=== PATIENT | female | born 1980 | race Caucasian/White ===

== ENCOUNTER 2017-07-18 21:34 | Emergency (ER) | payer MEDICAID ==
[~2017-07-18] VITALS: Ht 157.5 cm; Wt 99.8 kg
[2017-07-18] MEDS ORDERED: IBUPROFEN400 MG PO (21:52)
[2017-07-18] MEDS ORDERED: DELSYM30 MG/5 ML PO (21:53)
[2017-07-18 22:20] LABS: HEMOGLOBIN 11.8 g/dL (12.2-16.2); LYMPH # 2.6 K/mm3 (0.7-4.5); LYMPH % 27.1 % (10-50.0)
[2017-07-18 22:23] LABS: URINE BILIRUBIN - DIPSTICK NEGATIVE (NEG); URINE BLOOD TRACE-INTACT (NEG)
--- NOTE | 2017-07-18 23:04 | Emergency Room Report ---
History of Present Illness Time Seen by [id number] Presenting Problem in Triage Pt arrived:Walked Presenting Problem:"I HAVE BEEN FIGHTING SOMETHING OFF X 2 WEEKS. 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 Y Clinical Suspician of Infection? N Mental Status: 1 - Regular (Normal Baseline) Sepsis Risk:Severe Sepsis Risk Have you (or family members/close friends) recently traveled outside the [place]? N If Yes, where/when: Have you had exposure to infectious disease within the past month? N TB? Other? Specify: Source patient, RN notes reviewed, family, RN/MD Exam Limitations no limitations Comment The patient is a 37-year-old lady previously diagnosed with Graves' disease, and seen not till long-ago by endocrinology at [facility]. Patient's insurance ran out, and patient couldn't afford to go back to her doctor, and she is currently off of her Methimazole (30mg/day) and Propranolol ER (60 mg per day ). She is here today with nausea, vomiting, diarrhea for the past 2 weeks, also associated with shortness of breath, hoarseness, and a nonproductive cough for the past 23 days. Patient is also complaining with a subjective fever, as well. ALLERGIES Coded Allergies: No Known Allergies (07/18/17) Home Medications Reported Medications IBUPROFEN MICRONIZED (IBUPROFEN 400MG) 400 MG PO DAILY PRN VICENTE Dextromethorphan Polistirex (Delsym) 1 TSP PO Q12H PRN COUGH History Medical History General CAD? No Angina: No OR: No Hypertension? Yes Hyperlipidemia? No CHF? No DVT? No PE? No COPD? No Asthma? No Anemia? No GERD? No Gastric ulcers? No GI Bleed? No Hernia? No Thyroid Problems? Yes Hypothyroidism? No CVA? No Seizures? No Diabetes? No Renal Insuffiency? No End Stage Renal Disease? No UTI? No Stones? No BPH? No GB Disease: No Nephritic Syndrome? No Asplenia? No Hepatitis? No Sickle Cell Disease? No Arthritis? No Migraines? No Cataracts? No Glaucoma? No MRSA? No HIV? No TB? No Anxiety? No Depression? No Cancer? No More? 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 Social History Smoking Hx Smoker: Never Smoker Tobacco: No Alcohol Alcohol: No Review of Systems All Other Systems Reviewed and Negative Respiratory cough, shortness of breath, other (hoarseness) Gastrointestinal see HPI, denies abdominal pain, diarrhea, nausea, vomiting Physical Exam Vital Signs Vital Signs Date Time Temp Pulse Resp B/P Pulse O2 O2 Flow FiO2 Ox Delivery Rate 07/18 2359 99.2 96 40 152/76 99 07/18 2320 96 40 152/76 99 07/18 2156 24 96 07/18 2139 99.2 102 24 171/91 96 General Appearance normal appearance, WD/WN, mild distress Ear, Nose, Throat hearing grossly normal, boggy nasal mucosa, hoarse voice, soft tissue mass anterior to part of neck Respiratory Status Yes: trachea midline, chest symmetrical, non tender chest. No: respiratory distress. Lung Sounds bilateral: normal breath sounds, lungs clear. 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 No Comment 22:50-patient reevaluated appears in stable medical condition, clinically improving. 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 Saima Grant. Patient encouraged to find a local PCP, list with local doctors provided patient so that she can choose a new physician. Patient provided with prescription for antibiotics and Zofran, instructed to drink plenty of fluids, return to this emergency room if not better within 2 days. Results/Orders Laboratory Tests 07/18/17 2318: Urine Color Cancelled, Urine Appearance Cancelled, Urine pH Cancelled, Ur Specific [place] Cancelled 07/18/17 2230: Influenza Type A Ag NOT DETECTED, Influenza Type B Ag NOT DETECTED 07/18/17 2205: Sodium 138, Potassium 3.8, Chloride 105, Carbon Dioxide 29, BUN 6 L, Creatinine 0.4 L, Estimated Creat Clear 303 H, Estimated GFR (MDRD) 180, Glucose 109 H, Calcium 8.6, Total Bilirubin 0.8, AST 32, ALT 28, Alkaline Phosphatase 202 H, Total Protein 7.5, Albumin 2.4 L, Globulin 5.1 H, Albumin/Globulin Ratio 0.5 L, Amylase 20 L, Lipase 57 L, WBC 9.6, RBC 4.30, Hgb 11.8 L, Hct 36.1 L, MCV 84.1, RDW 13.5, Plt Count 154, MPV 9.5, Gran % 63.1, Gran # 6.0, Lymphocytes % 27.1, Monocytes % 8.5, Eosinophils % 1.2, Basophils % 0.2, Lymphocytes # 2.6, Monocytes # 0.8, Eosinophils # 0.1, Basophils # 0.0, PUBS MCHC 32.7, MCH 27.5, Urine Color YELLOW, Urine Appearance CLEAR, Urine pH 7.5, Ur Specific [place] 1.015, Urine Protein NEGATIVE, Urine Ketones NEGATIVE, Urine Blood TRACE-INTACT, Urine Nitrate NEGATIVE, Urine Bilirubin NEGATIVE, Urine Urobilinogen 4.0, Ur Leukocyte Esterase NEGATIVE, Urine RBC 3-5, Urine WBC OCC, Amorphous Sediment TRACE, Urine Glucose NEGATIVE 07/18/172158: Stl Aeromonas (PCR) Cancelled, Stl Cyclospora species Cancelled, Stool Rotavirus (PCR) Cancelled, Stool Astrovirus (PCR) Cancelled, Stool Campylobacter PCR Cancelled, Stool Cryptosporidium PCR Cancelled, Stl E. histolytica PCR Cancelled , Stool Giardia Lamblia PCR Cancelled, Stl P. shigelloides PCR Cancelled, Stool Sapovirus (PCR) Cancelled, Stool Vibrio (PCR) Cancelled, Stl Vibrio cholerae PCR Cancelled, Stl Norovirus GI/GII PCR Cancelled, Adenovirus (PCR) Cancelled, C. difficile Tox (PCR) Cancelled, E. coli (PCR) Cancelled, Salmonella (PCR) Cancelled, Yersinia (PCR) Cancelled Current Medication Orders Sig/Mauro Start time Last Medication Dose Route Stop Time Status Admin Diphenoxylate HCl/ 5 MG ONCE ONE 07/18 2315 DC 07/18 Atropine PO 07/18 2316 2312 Diphenoxylate HCl/ 0 .STK-MED ONE 07/18 2312 DC Atropine PO Lactated Ringer's 1,000 ML .STK-MED ONE 07/18 2218 DC IV Ondansetron HCl 0 .STK-MED ONE 07/18 2217 DC .ROUTE Ondansetron HCl 4 MG ONCE ONE 07/18 2215 DC 07/18 IV 07/18 2216 2220 Lactated Ringer's 1,000 ML .Q1H1M 07/18 2200 DC 07/18 IV 07/18 230 2220 Sodium Chloride 10 ML PRN PRN 07/18 2200 DCD IV 07/19 215 Sodium Chloride 10 ML PRN PRN 07/18 2200 DCD IV 07/19 220 Orders Procedure Date/time Status CHEST(2 VIEWS-NOT PORTABLE) 07/18 2159 Active IV SALINE LOCK 07/18 2159 Active URINALYSIS/COMPLETE 07/18 2159 Complete LIPASE 07/18 2159 Complete INFLUENZA A&B ANTIGENS 07/18 2159 Complete CBC WITH AUTO DIFF 07/18 2159 Complete CHEM 12 PROFILE 07/18 2159 Complete AMYLASE 07/18 2159 Complete XRAY/CT/US XRAY/CT/US XRAY chest XR interpretation by reviewed by me Xray Results no infiltrates, normal heart size, normal lung inflation sami Departure Departure Time of Disposition 230 Disposition DC Home or Self Care(routine) Clinical Impression Primary Impression: Viral gastroenteritis Secondary Impressions: Acute bronchitis Qualifiers: Bronchitis organism: unspecified organism Qualified Code: J20.9 - Acute bronchitis, unspecified Graves disease Condition STABLE Referrals SAIMA MELCHOR: Tomorrow-Call Office call the office and schedule and appointment saturnino!!! Patient Instructions DI for Acute Bronchitis, DI for Hyperthyroidism, DI for Viral Gastroenteritis -- Adult Additional Instructions Take OTC Imodium as needed for diarrhea. Find attached a prescription for Zofran (to be used as needed for nausea), and another one for Augmentin. Follow up with PCP if not better in 3-5 days. Restart the thyroid meds immediately. Discharge Counseling Counseled pt/family regarding diagnosis, test results, medications/RX, home care, follow up needs Comment Take OTC Imodium as needed for diarrhea. Find attached a prescription for Zofran (to be used as needed for nausea), and another one for Augmentin. Follow up with PCP if not better in 3-5 days. Prescriptions Current Visit Scripts Amoxicillin/Potassium Clav (Augmentin 875-125 Tablet) 1 EACH PO BID #20 TAB ONDANSETRON HCL (Zofran 4MG Tab) 4 MG PO Q6HP PRN NAUSEA AND VOMITING #20 TAB Methimazole (Methimazole 10 Mg (Tapazole)) 30 MG PO DAILY #90 TAB Ref 2 PROPRANOLOL HCL (Propranolol HCl ER) 60 MG PO DAILY #30 CER Ref 2 ED Critical Care Critical Care No at [id number]
[2017-07-18] MEDS ORDERED: ZOFRAN4 MG PO (23:10)
[2017-07-18] MEDS ORDERED: AUGMENTIN 875-1 EACH PO (23:10)
[2017-07-18] MEDS ORDERED: METHIMAZOLE 1010 MG PO (23:39)
[2017-07-18] MEDS ORDERED: PROPRANOLOL HCL60 MG PO (23:40)
[2017-07-18 23:59] VITALS: BP 152/76
--- NOTE | 2017-07-19 05:42 | RADIOLOGY REPORT PS360 ---
CHEST(2 VIEWS-NOT PORTABLE) HISTORY: cough ORDERING PHYSICIAN: Sony Rivero MD PATIENT AGE: 37 years COMPARISON: None available FINDINGS: There is borderline cardiomegaly without failure. The lungs are clear without infiltrates, suspicious nodules, or pleural effusions. No acute bony abnormalities. IMPRESSION: Borderline cardiomegaly otherwise negative
== END 2017-07-18 23:55 | disposition home or self-care (01) ==
LOC: ER 21:34
PROVIDERS: Emergency Medicine
DX: A08.4 Viral intestinal infection, unspecified (principal); E05.00 Thyrotoxicosis with diffuse goiter without thyrotoxic crisis or storm; J20.9 Acute bronchitis, unspecified; I10 Essential (primary) hypertension
CPT/HCPCS: J2405